=== PATIENT | female | born 2005 | race Caucasian/White ===

== ENCOUNTER 2025-04-18 09:06 | Inpatient (IN) | payer BC ==
[2025-04-18 10:02] LABS: GLUCOSE,URINE >1000 mg/dL (NORMAL); OCCULT BLOOD,URINE MODERATE (NEGATIVE)
[2025-04-18 10:04] LABS: MEAN PLATELET VOLUME 9.0 fL (7.1-12.4); PLATELET COUNT,PLT 501 x10(3)uL (151-488); RED BLOOD CELL COUNT 5.63 x10(6)uL (3.60-5.20); RED CELL DISTRIBUTION WIDTH 13.4 % (12.3-16.5); WHITE BLOOD CELL COUNT,WBC 13.0 x10-3/uL (3.0-10.3)
[2025-04-18] MEDS: Ondansetron 4 MG/2 ML SDV IVPUSH ONE (10:04)
[2025-04-18 10:06] LABS: BLOOD UREA NITROGEN,BUN 5 mg/dL (7-18); CARBON DIOXIDE,CO2 15 mmol/L (21-32); CHLORIDE,CL 100 mmol/L (100-110); CREATININE 0.8 mg/dL (0.55-1.02); EST CRCL DRUG DOSING (CG) 92.79 mL/min; ESTIMATED GFR 108 mL/min (>60); GLUCOSE RANDOM 310 mg/dL (80-116); POTASSIUM,K 3.9 mmol/L (3.5-5.3); SODIUM,NA 138 mmol/L (135-145)
[2025-04-18 10:06] LABS: APPEARANCE,URINE CLEAR (CLEAR)
[2025-04-18 10:10] LABS: SQUAMOUS EPITHELIAL CELLS,UR FEW (NS,R,O)
[2025-04-18 10:12] LABS: A/G RATIO 1.1; ALANINE AMINOTRANSFERASE,ALT 16 U/L (12-36); ASPARTATE AMNIOTRANSFERASE,AST 15 IU/L (5-25); BILIRUBIN TOTAL 0.7 mg/dL (0.1-1.3); PROTEIN TOTAL,TP 9.2 g/dL (6.0-8.0)
[2025-04-18 10:14] LABS: AMPHETAMINES SCREEN, URINE NEGATIVE (NEGATIVE); BUPRENORPHINE SCREEN,URINE NEGATIVE (NEGATIVE); METHADONE SCREEN, URINE NEGATIVE (NEGATIVE); METHAMPHETAMINE SCREEN, URINE NEGATIVE (NEGATIVE); OXYCODONE SCREEN,URINE NEGATIVE (NEGATIVE)
[2025-04-18 10:19] LABS: BAND PERCENT MAN 2 % (0-6); LYMPHOCYTES PERCENT MAN 10 % (13-37); MONOCYTES PERCENT MAN 5 % (4-12); SEG NEUTROPHILS PERCENT MAN 83 % (46-82)
[2025-04-18 10:42] LABS: BASE EXCESS VENOUS,POC -16 mmol/L (-2 - 3+); PCO2 VENOUS,POC 32 mmHg (41-51); PH VENOUS,POC 7.16 pH Units (7.32-7.43)
[2025-04-18] MEDS ORDERED: 50% Dextrose in Water 50 ML Syringe IVPUSH PRN (11:23)
[2025-04-18] MEDS: Insulin Regular, Human 100 Units/ML 10 ML Vial IV ONE (11:33)
[2025-04-18] MEDS ORDERED: Ondansetron 4 MG/2 ML SDV IVPUSH PRN (14:28)
[2025-04-18 16:14] LABS: BLOOD UREA NITROGEN,BUN 5 mg/dL (7-18); CARBON DIOXIDE,CO2 13 mmol/L (21-32); CHLORIDE,CL 108 mmol/L (100-110); CREATININE 0.7 mg/dL (0.55-1.02); EST CRCL DRUG DOSING (CG) 106.05 mL/min; ESTIMATED GFR 127 mL/min (>60); GLUCOSE RANDOM 153 mg/dL (80-116); POTASSIUM,K 2.9 mmol/L (3.5-5.3); SODIUM,NA 139 mmol/L (135-145)
[2025-04-18 16:17] LABS: PHOSPHORUS 2.1 mg/dL (2.6-4.6)
[2025-04-18 18:11] LABS: BASE EXCESS VENOUS,POC -13 mmol/L (-2 - 3+); PCO2 VENOUS,POC 28 mmHg (41-51); PH VENOUS,POC 7.25 pH Units (7.32-7.43)
[2025-04-18] MEDS: Potassium Chloride 20 MEQ Tab.ER PO ONE ×2 (18:11→23:25)
[2025-04-18 18:13] LABS: BLOOD UREA NITROGEN,BUN 5 mg/dL (7-18); CARBON DIOXIDE,CO2 14 mmol/L (21-32); CHLORIDE,CL 104 mmol/L (100-110); CREATININE 0.7 mg/dL (0.55-1.02); EST CRCL DRUG DOSING (CG) 106.05 mL/min; ESTIMATED GFR 127 mL/min (>60); GLUCOSE RANDOM 199 mg/dL (80-116); POTASSIUM,K 3.0 mmol/L (3.5-5.3); SODIUM,NA 134 mmol/L (135-145)
[2025-04-18 18:16] LABS: PHOSPHORUS 1.8 mg/dL (2.6-4.6)
[2025-04-18 22:57] LABS: CARBON DIOXIDE,CO2 17 mmol/L (21-32); CHLORIDE,CL 110 mmol/L (100-110); CREATININE 0.6 mg/dL (0.55-1.02); EST CRCL DRUG DOSING (CG) 123.72 mL/min; ESTIMATED GFR 132 mL/min (>60); GLUCOSE RANDOM 147 mg/dL (80-116); POTASSIUM,K 3.1 mmol/L (3.5-5.3); SODIUM,NA 138 mmol/L (135-145)
[2025-04-18 23:01] LABS: BLOOD UREA NITROGEN,BUN < 5 mg/dL (7-18)
[2025-04-18 23:13] LABS: PHOSPHORUS 0.8 mg/dL (2.6-4.6)
[2025-04-18] MEDS: Ondansetron 4 MG/2 ML SDV IVPUSH PRN (23:28)
[2025-04-18] MEDS: Sodium Chloride 0.9% 10 ML Syringe FLUSH PRN (23:28)
[2025-04-18] MEDS: Magnesium Sulfate 2 GM/50 mL 2 GM in Premix Bag 1 BAG IV ONE (23:39)
[2025-04-18] MEDS: Potassium Phosphate,Monobasic 500 MG Tab.Solu PO ONE (23:54)
[2025-04-19] MEDS: Potassium Chloride 20 MEQ Tab.ER PO SCH (00:03)
[2025-04-19] MEDS: Potassium Phosphate,Mb-Db/Sodium Phosphate,Mb-Db Packet PO SCH ×2 (00:04→17:01)
[2025-04-19] MEDS ORDERED: Potassium Phosphate,Monobasic 500 MG Tab.Solu PO SCH (02:00)
[2025-04-19 03:09] LABS: CARBON DIOXIDE,CO2 16 mmol/L (21-32); CHLORIDE,CL 108 mmol/L (100-110); CREATININE 0.5 mg/dL (0.55-1.02); EST CRCL DRUG DOSING (CG) 148.47 mL/min; ESTIMATED GFR 138 mL/min (>60); GLUCOSE RANDOM 192 mg/dL (80-116); POTASSIUM,K 3.9 mmol/L (3.5-5.3); SODIUM,NA 136 mmol/L (135-145)
[2025-04-19 03:12] LABS: PHOSPHORUS 2.1 mg/dL (2.6-4.6)
[2025-04-19 03:13] LABS: BLOOD UREA NITROGEN,BUN < 5 mg/dL (7-18)
[2025-04-19 06:57] LABS: CARBON DIOXIDE,CO2 17 mmol/L (21-32); CHLORIDE,CL 109 mmol/L (100-110); CREATININE 0.6 mg/dL (0.55-1.02); EST CRCL DRUG DOSING (CG) 123.72 mL/min; ESTIMATED GFR 132 mL/min (>60); GLUCOSE RANDOM 101 mg/dL (80-116); POTASSIUM,K 3.6 mmol/L (3.5-5.3); SODIUM,NA 141 mmol/L (135-145)
[2025-04-19 07:00] LABS: PHOSPHORUS 3.3 mg/dL (2.6-4.6); PLATELET COUNT,PLT 464.0 x10(3)uL (151-488); RED BLOOD CELL COUNT 4.61 x10(6)uL (3.60-5.20); RED CELL DISTRIBUTION WIDTH 13.3 % (12.3-16.5); WHITE BLOOD CELL COUNT,WBC 11.4 x10-3/uL (3.0-10.3)
[2025-04-19 07:03] LABS: BLOOD UREA NITROGEN,BUN < 5 mg/dL (7-18)
[2025-04-19 07:13] LABS: BASE EXCESS VENOUS,POC -9 mmol/L (-2 - 3+); PCO2 VENOUS,POC 32 mmHg (41-51); PH VENOUS,POC 7.31 pH Units (7.32-7.43)
[2025-04-19] MEDS: buPROPion 150 MG Tab.ER PO SCH (09:36)
[2025-04-19 10:47] LABS: CARBON DIOXIDE,CO2 16 mmol/L (21-32); CHLORIDE,CL 103 mmol/L (100-110); CREATININE 0.5 mg/dL (0.55-1.02); EST CRCL DRUG DOSING (CG) 148.47 mL/min; ESTIMATED GFR 138 mL/min (>60); GLUCOSE RANDOM 355 mg/dL (80-116); POTASSIUM,K 3.5 mmol/L (3.5-5.3); SODIUM,NA 136 mmol/L (135-145)
[2025-04-19 10:49] LABS: BLOOD UREA NITROGEN,BUN < 5 mg/dL (7-18)
[2025-04-19 10:50] LABS: PHOSPHORUS 2.0 mg/dL (2.6-4.6)
[2025-04-19 10:55] LABS: BASE EXCESS VENOUS,POC -9 mmol/L (-2 - 3+); PCO2 VENOUS,POC 26 mmHg (41-51); PH VENOUS,POC 7.36 pH Units (7.32-7.43)
[2025-04-19] MEDS: Potassium Chloride 20 MEQ in Premix Bag 1 BAG IV SCH (14:54)
[2025-04-19 15:15] LABS: BASE EXCESS VENOUS,POC -4 mmol/L (-2 - 3+); PCO2 VENOUS,POC 26 mmHg (41-51); PH VENOUS,POC 7.47 pH Units (7.32-7.43)
[2025-04-19 15:29] LABS: CARBON DIOXIDE,CO2 20 mmol/L (21-32); CHLORIDE,CL 108 mmol/L (100-110); CREATININE 0.5 mg/dL (0.55-1.02); EST CRCL DRUG DOSING (CG) 148.47 mL/min; ESTIMATED GFR 138 mL/min (>60); GLUCOSE RANDOM 118 mg/dL (80-116); POTASSIUM,K 3.2 mmol/L (3.5-5.3); SODIUM,NA 139 mmol/L (135-145)
[2025-04-19 15:31] LABS: BLOOD UREA NITROGEN,BUN < 5 mg/dL (7-18)
[2025-04-19 15:32] LABS: PHOSPHORUS 0.9 mg/dL (2.6-4.6)
[2025-04-19] MEDS: Potassium Chloride 20 MEQ in Premix Bag 1 BAG IV ONE (16:30)
[2025-04-19] MEDS: Insulin Lispro 100 Unit/ML 3 ML KwikPen SUBCUT SCH (17:14)
[2025-04-19] MEDS: Insulin Glargine,Human Rec. Analog 100 Units/ML 3 ML Pen SUBCUT SCH (18:02)
[2025-04-19 19:38] LABS: CARBON DIOXIDE,CO2 22 mmol/L (21-32); CHLORIDE,CL 103 mmol/L (100-110); CREATININE 0.5 mg/dL (0.55-1.02); EST CRCL DRUG DOSING (CG) 148.47 mL/min; ESTIMATED GFR 138 mL/min (>60); GLUCOSE RANDOM 317 mg/dL (80-116); PHOSPHORUS 2.5 mg/dL (2.6-4.6); POTASSIUM,K 3.5 mmol/L (3.5-5.3); SODIUM,NA 136 mmol/L (135-145)
[2025-04-19 19:40] LABS: BLOOD UREA NITROGEN,BUN < 5 mg/dL (7-18)
[2025-04-19] MEDS ORDERED: Potassium Phosphate,Monobasic 500 MG Tab.Solu PO ONE (20:00)
[2025-04-19] MEDS ORDERED: 50% Dextrose in Water 50 ML Syringe IVPUSH PRN (20:35)
[2025-04-19] MEDS: Insulin Lispro 100 Unit/ML 3 ML KwikPen SUBCUT ONE (20:50)
[2025-04-19 23:26] LABS: CARBON DIOXIDE,CO2 26 mmol/L (21-32); CHLORIDE,CL 105 mmol/L (100-110); CREATININE 0.5 mg/dL (0.55-1.02); EST CRCL DRUG DOSING (CG) 148.47 mL/min; ESTIMATED GFR 138 mL/min (>60); GLUCOSE RANDOM 197 mg/dL (80-116); POTASSIUM,K 2.9 mmol/L (3.5-5.3); SODIUM,NA 139 mmol/L (135-145)
[2025-04-19 23:38] LABS: BLOOD UREA NITROGEN,BUN < 5 mg/dL (7-18)
[2025-04-20] MEDS: Potassium Chloride 20 MEQ Tab.ER PO SCH (00:18)
[2025-04-20 06:52] LABS: BASOPHILS ABSOLUTE AUTO 0.0 x10-3/uL (0.0-0.1); BASOPHILS PERCENT AUTO 0.6 % (0.2-1.5); EOSINOPHILS ABSOLUTE AUTO 0.1 x10-3/uL (0.0-0.8); EOSINOPHILS PERCENT AUTO 2.1 % (0.6-8.1); LYMPHOCYTES ABSOLUTE AUTO 1.9 x10-3/uL (1.0-4.4); LYMPHOCYTES PERCENT AUTO 29.9 % (18.4-52.1); MEAN PLATELET VOLUME 8.7 fL (7.1-12.4); MONOCYTES ABSOLUTE AUTO 0.8 x10-3/uL (0.3-1.0); MONOCYTES PERCENT AUTO 11.8 % (4.4-15.7); NEUTROPHILS ABSOLUTE AUTO 3.6 x10-3/uL (1.5-6.3); NEUTROPHILS PERCENT AUTO 55.6 % (30.8-76.2); PLATELET COUNT,PLT 339 x10(3)uL (151-488); RED BLOOD CELL COUNT 4.73 x10(6)uL (3.60-5.20); RED CELL DISTRIBUTION WIDTH 13.6 % (12.3-16.5); WHITE BLOOD CELL COUNT,WBC 6.5 x10-3/uL (3.0-10.3)
[2025-04-20 06:57] LABS: CARBON DIOXIDE,CO2 22 mmol/L (21-32); CHLORIDE,CL 105 mmol/L (100-110); CREATININE 0.5 mg/dL (0.55-1.02); EST CRCL DRUG DOSING (CG) 148.47 mL/min; ESTIMATED GFR 138 mL/min (>60); GLUCOSE RANDOM 174 mg/dL (80-116); POTASSIUM,K 3.7 mmol/L (3.5-5.3); SODIUM,NA 140 mmol/L (135-145)
[2025-04-20 06:59] LABS: BLOOD UREA NITROGEN,BUN < 5 mg/dL (7-18)
[2025-04-20] MEDS ORDERED: 50% Dextrose in Water 50 ML Syringe IVPUSH PRN (07:03)
[2025-04-20] MEDS ORDERED: Insulin Regular, Human 100 Units/ML 10 ML Vial SUBCUT SCH (09:00)
[2025-04-20] MEDS: Insulin Lispro 100 Unit/ML 3 ML KwikPen SUBCUT SCH (09:04)
[2025-04-20] MEDS ORDERED: Benzocaine/Cetylpyridinium/Menthol Lozenge MUCMEM PRN (09:15)
[2025-04-21 07:37] LABS: GLUTAMIC ACID DECARBOXYLASE AB >250.0 IU/mL (0.0-5.0)
[2025-04-21 10:52] LABS: BETA-HYDROXYBUTYRIC ACID 4.07 mmol/L (0.02-0.27)
== END 2025-04-20 15:00 | disposition home or self-care (01) | DRG 420 ==
LOC: FB.ED 09:06 → FB.MS 12:18
PROVIDERS: ADMIT Internal Medicine; ATTEND Internal Medicine
DX: E11.10 Type 2 diabetes mellitus with ketoacidosis without coma (principal); D72.829 Elevated white blood cell count, unspecified; F12.929 Cannabis use, unspecified with intoxication, unspecified; E86.0 Dehydration; E87.6 Hypokalemia; F19.90 Other psychoactive substance use, unspecified, uncomplicated; F41.9 Anxiety disorder, unspecified; F31.9 Bipolar disorder, unspecified; F42.9 Obsessive-compulsive disorder, unspecified; E83.42 Hypomagnesemia; E83.39 Other disorders of phosphorus metabolism; Z79.4 Long term (current) use of insulin; Z79.899 Other long term (current) drug therapy; Z79.1 Long term (current) use of non-steroidal anti-inflammatories (NSAID)
CPT/HCPCS: 36415; 71046; 80048; 80053; 80307; 81001; 81025; 82010; 82040; 82947; 83036; 83605; 83690; 83735; 84100; 84484; 85025; 85027; 86140; 86341; 87040; 87428-QW; 87651; 93005; 96361; 96374; 99285-25; A9270-GY; J1650; J1815-GY; J2405; J2765; J3475; J3480; J7030; S5010